=== PATIENT | female | born 1950 ===

== ENCOUNTER 2021-10-19 06:56 | Inpatient (IN) ==
[~2021-10-19 06:56] MED LIST: Buffered Lidocaine 1% SYRIN 1 ml INTRADERM ONE; Famotidine IV 10 MG/ML 2 ml VIAL (20 mg) IV ONE; Lactated Ringers 1000 ml BAG 1,000 ML IV SCH
[2021-10-19] MEDS ORDERED: ceFAZolin 2 GM PREMIX 2 GM/50 ML BAG ONE (07:54)
[2021-10-19] MEDS ORDERED: Famotidine IV 10 MG/ML 2 ml VIAL (20 mg) ONE (07:54)
[2021-10-19] MEDS ORDERED: ROPIVACAINE 5 MG/ML 30 ML BTL (0.5%) ONE (08:34)
[2021-10-19] MEDS ORDERED: Midazolam 2 mg/2 ml VIAL 1 mg/ml 2 ml VIAL (2 mg) ONE (08:36)
[2021-10-19 08:40] LABS: INR 1.06 (0.86-1.15)
[2021-10-19] MEDS ORDERED: Levalbuterol 0.63MG/3ML NEB UNIT OF USE INH PRN (09:47)
[2021-10-19] MEDS ORDERED: fentaNYL 100 mcg/2 ml 50 MCG/ML VIAL IV PRN (09:47)
[2021-10-19] MEDS ORDERED: Naloxone 0.4 mg VIAL 0.4 mg/ml 1 ml VIAL IV PRN (09:47)
[2021-10-19] MEDS ORDERED: Ondansetron 4 mg VIAL 2 MG/ML 2 ml VIAL IV PRN ×2 (09:47→10:31)
[2021-10-19] MEDS ORDERED: Phenylephrine 40 mcg/mL 10mL (400mcg) SYRINGE ONE (09:50)
[2021-10-19] MEDS ORDERED: Phenylephrine IV 10 MG/ML 1 ml VIAL ONE (10:19)
[2021-10-19] MEDS ORDERED: Magnesium Hydroxide LIQ 30 ML UDC PO PRN (10:31)
[2021-10-19] MEDS ORDERED: Lactulose 30 ml UDC PO PRN (10:31)
[2021-10-19] MEDS ORDERED: Morphine 2 MG/ML SYRINGE IV PRN (10:31)
[2021-10-19] MEDS ORDERED: diPHENhydraMINE 25 mg TAB PO PRN (10:31)
[2021-10-19] MEDS ORDERED: diPHENhydraMINE IV 50 MG/ML 1 ml VIAL (BENADRYL) IV PRN (10:31)
[2021-10-19] MEDS ORDERED: Ondansetron ODT 4 mg TAB 4 MG TAB PO PRN (10:31)
[2021-10-19] MEDS ORDERED: Lactated Ringers 1000 ml BAG 1,000 ML IV SCH (11:00)
[2021-10-19] MEDS ORDERED: PTO: Dulaglutide (NF) 1.5 MG/0.5 ML SYRINGE SUBCUT SCH (11:00)
[2021-10-19] MEDS ORDERED: Propofol 10 MG/ML 20 ML BTL ONE (11:37)
[2021-10-19] MEDS ORDERED: Albuterol HFA INHALER 8 gm MDI INH PRN (13:18)
[2021-10-19] MEDS ORDERED: Fluticasone NASAL SPRAY 50MCG 16 gm SPRAY BTL BOTH NARES PRN (13:40)
[2021-10-19] MEDS: ceFAZolin 1 GM ADVAN 1 GM in NS 0.9% 50 ML 50 ML IVPB SCH (17:25)
[2021-10-19] MEDS ORDERED: NF: Empaglifozin 10 mg TAB (NF) PO SCH (21:00)
[2021-10-19] MEDS ORDERED: SIMVASTATIN 20 MG PO SCH (21:00)
[2021-10-19] MEDS: Magnesium Hydroxide LIQ 30 ML UDC PO SCH (21:14)
[2021-10-20] MEDS: ceFAZolin 1 GM ADVAN 1 GM in NS 0.9% 50 ML 50 ML IVPB SCH ×2 (01:53→09:25)
[2021-10-20 06:26] LABS: Hematocrit 36 % (35-47); Hemoglobin 12.1 g/dL (12.0-16.0); Mean Platelet Volume 7.6 fL (7.4-10.4); Platelet Count 223 10^3/uL (150-450)
[2021-10-20 06:51] LABS: Calcium 8.2 mg/dL (8.6-10.3); Potassium 4.4 mmol/L (3.5-5.0); eGFR CKD-EPI 92.4 (>60)
[2021-10-20] MEDS: Magnesium Hydroxide LIQ 30 ML UDC PO SCH (08:00)
[2021-10-20] MEDS ORDERED: PTO: SPIRIVA Respimat (tiotropium) 2.5 mcg/inh Inhaler INH SCH (09:00)
[2021-10-20] MEDS ORDERED: Vitamin THERAPEUTIC TAB PO SCH (09:00)
[2021-10-20] MEDS ORDERED: PTO: Fluticasone/Vilanterol MDI(NF) 200/25 MDI INH SCH (09:00)
[2021-10-20 11:29] VITALS: BP 106/65
[2021-10-20] MEDS ORDERED: CMC: Simvastatin 10 mg TAB (NF) PO SCH (21:00)
== END 2021-10-20 13:40 | disposition home or self-care (01) | DRG 470 ==
LOC: AA 06:56 → INTOOBSV 10:31 → SSU 13:04
PROVIDERS: ADMIT Orthopaedic Surgery Adult Reconstructive Orthopaedic Surgery; ATTEND Orthopaedic Surgery Adult Reconstructive Orthopaedic Surgery